=== PATIENT | male | born 1975 | race Caucasian/White ===

== ENCOUNTER 2016-07-26 12:14 | Emergency (ER) | payer MEDICAID, MEDICARE | END 2016-07-26 18:38 | LOC: ER 12:14 | DX: F41.1 Generalized anxiety disorder (principal); F32.9 Major depressive disorder, single episode, unspecified; F17.210 Nicotine dependence, cigarettes, uncomplicated; Z79.899 Other long term (current) drug therapy; Z79.82 Long term (current) use of aspirin; I10 Essential (primary) hypertension | CPT/HCPCS: 36415; 80053; 80307; 81001; 84439; 84443; 85025; 85610; 99285; G0480; 80320; 80329 ==